=== PATIENT | male | born 1950 | race Caucasian/White ===

== ENCOUNTER → 2023-12-26 14:39 | Outpatient (CLI) | payer MEDICARE, OTHER, SELFPAY ==
[2023-12-26 15:59] LABS: High Sensitivity CRP - Cardiac 1.7 mg/L (1.0-3.0)
[2023-12-26 16:11] LABS: Vitamin D 25 Hydroxy (D3) 41.7 ng/mL (30.0-100.0)
== END ==
PROVIDERS: PCP Family Medicine; Referring Provider Family Medicine; Visit Provider Family Medicine
DX: E55.9 Vitamin D deficiency, unspecified (principal); R79.82 Elevated C-reactive protein (CRP)
CPT/HCPCS: 36415; 82306; 86140

== ENCOUNTER → 2024-05-23 09:51 | Outpatient (CLI) | payer MEDICARE, OTHER, SELFPAY ==
[2024-05-23 10:55] LABS: Alanine Aminotransferase 29 IU/L (<50); Albumin 4.1 g/dL (3.5-5.0); Albumin Globulin Ratio 1.4 (1.0-2.8); Alkaline Phosphatase 76 U/L (38-126); Aspartate Aminotransferase 27 IU/L (17-59); Bilirubin Total 0.7 mg/dL (0.2-1.3); Blood Urea Nitrogen 16 mg/dL (9-20); Calcium 9.4 mg/dL (8.4-10.2); Carbon Dioxide 28 mmol/L (22-32); Chloride 104 mmol/L (98-107); Cholesterol 236 mg/dL (140-199); Estimated Glomerular Filt Rate > 60 mL/min (>60); Globulin 2.9 g/dL (1.7-4.1); Glucose 117 mg/dL (80-110); HDL Cholesterol 91 mg/dL (40-60); HEMOLYSIS < 15 (0-50); LDL Cholesterol Calculated 122 mg/dL (<100); Potassium 4.9 mmol/L (3.4-5.1); Sodium 137 mmol/L (137-145); Triglycerides 114 mg/dL (35-150)
[2024-05-23 10:58] LABS: High Sensitivity CRP - Cardiac 6.6 mg/L (1.0-3.0)
[2024-05-23 11:12] LABS: Vitamin D 25 Hydroxy (D3) 32.5 ng/mL (30.0-100.0)
[2024-05-23 11:26] LABS: Prostate Specific Antigen Scrn 1.52 ng/mL (0.1-4.0)
== END ==
PROVIDERS: PCP Family Medicine; Referring Provider Family Medicine; Visit Provider Family Medicine
DX: R73.03 Prediabetes (principal); E78.5 Hyperlipidemia, unspecified; Z12.5 Encounter for screening for malignant neoplasm of prostate; E55.9 Vitamin D deficiency, unspecified; M10.9 Gout, unspecified
CPT/HCPCS: 36415; 80053; 80061; 82306; 83036; 84550; 86140; G0103

== ENCOUNTER → 2024-06-16 08:58 | Outpatient (CLI) | payer MEDICARE, OTHER, SELFPAY ==
--- NOTE | 2024-06-16 08:59 | DI.MRI.S_ITS ---
PROCEDURE: MR KNEE LT WO CON INDICATIONS: left knee pain/swelling TECHNIQUE: Noncontrast sagittal PD fast spin echo and T2 fast spin echo with fat saturation, sagittal 3-D FLASH with fat saturation; coronal T1 spin echo and PD fast spin echo with fat saturation, and axial PD fast spin echo with fat saturation through the knee. COMPARISON: None. FINDINGS: Image quality: Excellent. Menisci: In the medial meniscus, there is a complex tear of the posterior horn, with a peripheral vertical component and a small radial component of the inner margin. There is additional complex tear of the medial meniscus body, with near maceration of the meniscus body and a meniscus flap extending into the inferior gutter. In the lateral meniscus, there is a small oblique tear of the posterior horn (series 6, image 25). There is additional complex tear of the lateral meniscus body with horizontal and an incomplete radial component. No extrusion of the lateral meniscus body. Cruciate ligaments: The anterior and posterior cruciate ligaments appear intact. Medial structures: Grade 1 sprain of the MCL. Lateral structures: The lateral collateral ligament, long and short heads of the biceps femoris tendon appear intact. The popliteus tendon appears normal; the popliteofibular ligament appears intact. The posterosuperior and anteroinferior popliteomeniscal fascicles appear intact. The arcuate and fabellofibular ligaments appear intact, on either side of the lateral inferior geniculate artery. Iliotibial band appears normal. Anterior structures: The quadriceps tendon is intact. Mild tendinosis of the proximal patellar tendon. The patellofemoral ligaments are intact. Bones and cartilage: There is mild chondral irregularity in the median ridge of the patella. Mild chondral irregularity of the central trochlea, with mild subchondral marrow edema. In the medial compartment, the cartilage is well maintained. In the lateral compartment, the cartilage is well maintained as well. Mild subchondral marrow edema of the peripheral aspect of the medial tibial plateau, reactive. There is a fat containing lesion without marrow edema in the medial aspect distal femur diaphysis, measuring 3.4 cm, favoring benign etiology. Joint space: Small knee effusion. Large, partially ruptured popliteal cyst. Popliteal vasculature is unremarkable. Subcutaneous edema of the knee, most pronounced in the anterior knee. IMPRESSION: 1. Complex tear of the medial and lateral meniscus, medial greater than lateral. Subjacent reactive marrow edema in the peripheral aspect of the medial tibial plateau. 2. Grade 1 sprain of the MCL. 3. Mild chondrosis of the patellofemoral compartment. 4. Large , partially ruptured popliteal cyst. 5. Subcutaneous edema knee, pronounced in the anterior knee. Dictated by: Loren White M.D. on 06/18/2024 at 11:47 Approved by: Loren White M.D. on 06/18/2024 at 12:01
--- NOTE | 2024-06-16 09:00 | DI.MRI.S_ITS ---
PROCEDURE: MR FOOT RT WO CON INDICATIONS: R HALLUX CONTUSION/EXTENSION INJURY TECHNIQUE: Multiphasic, multisequence MRI of the forefoot was performed, without intravenous contrast administration. COMPARISON: None. FINDINGS: Image quality: Excellent. Bones and joints: There is mild patchy marrow edema of the 1st metatarsal neck, extending to the distal diaphysis proximally, without fracture line, favored representing marrow contusion. The hallucal sesamoid are remarkable. No acute fracture. Soft tissues: Both the medial and lateral sesamoid phalangeal ligaments are not visualized, concerning for full-thickness tear. Trace tenosynovitis of the flexor hallucis longus at the level of the 1st metatarsal diaphysis. The extensor tendons are remarkable. Mild subcutaneous edema of the dorsal forefoot. Mild diffuse muscle edema, with mild fatty infiltration, nonspecific. The Lisfranc ligament is intact. No intermetatarsal bursitis. IMPRESSION: 1. Mild marrow contusion of the distal aspect of the 1st metatarsal, with full-thickness tear of both the medial and lateral sesamoid phalangeal ligaments. Dictated by: Loren White M.D. on 06/18/2024 at 12:01 Approved by: Loren White M.D. on 06/18/2024 at 12:12
== END ==
LOC: MRI 08:59
PROVIDERS: PCP Family Medicine; Referring Provider Family Medicine; Visit Provider Family Medicine
DX: S93.501A Unspecified sprain of right great toe, initial encounter (principal); S90.111A Contusion of right great toe without damage to nail, initial encounter; M25.562 Pain in left knee; S83.232A Complex tear of medial meniscus, current injury, left knee, initial encounter; S83.272A Complex tear of lateral meniscus, current injury, left knee, initial encounter; S83.412A Sprain of medial collateral ligament of left knee, initial encounter; M25.462 Effusion, left knee; M66.0 Rupture of popliteal cyst; M22.42 Chondromalacia patellae, left knee; X58.XXXA Exposure to other specified factors, initial encounter
CPT/HCPCS: 73718; 73721

== ENCOUNTER → 2024-07-31 11:58 | Outpatient (CLI) | payer MEDICARE, OTHER, SELFPAY ==
[2024-07-31 12:57] LABS: Alanine Aminotransferase 20 IU/L (<50); Albumin 4.2 g/dL (3.5-5.0); Albumin Globulin Ratio 1.4 (1.0-2.8); Alkaline Phosphatase 76 U/L (38-126); Aspartate Aminotransferase 28 IU/L (17-59); BUN Creatinine Ratio 12.8 (6-22); Bilirubin Total 1.2 mg/dL (0.2-1.3); Blood Urea Nitrogen 14 mg/dL (9-20); C-Reactive Protein Quant < 0.5 mg/dL (<1.0); Calcium 9.3 mg/dL (8.4-10.2); Carbon Dioxide 23 mmol/L (22-32); Chloride 104 mmol/L (98-107); Cholesterol 251 mg/dL (140-199); Estimated Glomerular Filt Rate > 60 mL/min (>60); Globulin 2.9 g/dL (1.7-4.1); Glucose 108 mg/dL (80-110); HDL Cholesterol 68 mg/dL (40-60); HEMOLYSIS < 15 (0-50); LDL Cholesterol Calculated 155 mg/dL (<100); Potassium 4.7 mmol/L (3.4-5.1); Sodium 135 mmol/L (137-145); Total Protein 7.1 g/dL (6.3-8.2); Triglycerides 140 mg/dL (35-150)
[2024-07-31 13:22] LABS: Prostate Specific Antigen 1.71 ng/mL (0.10-4.00)
[2024-07-31 13:50] LABS: Hemoglobin A1C% w Est Avg Glu 5.8 % (4.0-6.0)
== END ==
PROVIDERS: PCP Family Medicine; Referring Provider Family Medicine; Visit Provider Family Medicine
DX: R73.03 Prediabetes (principal); E78.00 Pure hypercholesterolemia, unspecified; Z12.5 Encounter for screening for malignant neoplasm of prostate; G62.9 Polyneuropathy, unspecified; R79.82 Elevated C-reactive protein (CRP); E51.9 Thiamine deficiency, unspecified
CPT/HCPCS: 36415; 80053; 80061; 83036; 84153; 84425; 86140

== ENCOUNTER → 2024-08-15 15:05 | Outpatient (CLI) | payer MEDICARE, OTHER, SELFPAY ==
[2024-08-17 11:36] LABS: Fecal Immunochemical Test Negative (Negative)
== END ==
PROVIDERS: PCP Family Medicine; Referring Provider Family Medicine; Visit Provider Family Medicine
DX: Z12.11 Encounter for screening for malignant neoplasm of colon (principal)
CPT/HCPCS: 82274

== ENCOUNTER → 2025-02-08 09:35 | Outpatient (CLI) | payer MEDICARE, OTHER, SELFPAY ==
[2025-02-08 10:09] LABS: Hematocrit 45.4 % (41-53); Hemoglobin 15.2 g/dL (13.5-17.5); Mean Corpuscular HGB Conc 33.5 % (30-36); Mean Corpuscular Hemoglobin 32.5 PG (26-34); Platelet Count 225 X10^3/uL (150-400); Red Blood Cell Count 4.68 X10^6/uL (4.5-5.9); Red Cell Distribution Width 15.4 % (11.6-14.8); White Blood Cell Count 4.2 X10^3/uL (4.5-11.0)
[2025-02-08 10:16] LABS: Appearance Urine UA CLEAR; Bilirubin Urine UA NEGATIVE (NEGATIVE); Color Urine UA YELLOW; Glucose Urine UA NEGATIVE (Negative); Ketones Urine UA TRACE (NEGATIVE); Leukocyte Esterase Urine UA NEGATIVE (NEGATIVE); Nitrite Urine UA NEGATIVE (Negative); Occult Blood Urine UA TRACE-INTACT (Negative); Protein Urine UA NEGATIVE (Negative); pH Urine UA 6.5 (4.5-8.0)
[2025-02-08 10:17] LABS: Hemoglobin A1C% w Est Avg Glu 5.4 % (4.0-6.0)
[2025-02-08 10:23] LABS: Amorphous Sediment Urine 1+; Bacteria Urine None Seen; Culture Indicated Urine Cult Not Indicated; RBC Urine 1-5/HPF (0-5/HPF); Squamous Epithelial Cell Urine None Seen (0-5/HPF); Urine Volume 10mL (spun); WBC Urine None Seen (0-5/HPF)
[2025-02-08 10:28] LABS: Alanine Aminotransferase 23 IU/L (<50); Albumin 4.4 g/dL (3.5-5.0); Albumin Globulin Ratio 1.6 (1.0-2.8); Alkaline Phosphatase 77 U/L (38-126); Aspartate Aminotransferase 31 IU/L (17-59); BUN Creatinine Ratio 17.5 (6-22); Bilirubin Total 1.1 mg/dL (0.2-1.3); Blood Urea Nitrogen 21 mg/dL (9-20); Calcium 9.1 mg/dL (8.4-10.2); Carbon Dioxide 26 mmol/L (22-32); Chloride 105 mmol/L (98-107); Cholesterol 253 mg/dL (140-199); Estimated Glomerular Filt Rate > 60 mL/min (>60); Globulin 2.8 g/dL (1.7-4.1); Glucose 108 mg/dL (80-110); HDL Cholesterol 74 mg/dL (40-60); HEMOLYSIS < 15 (0-50); LDL Cholesterol Calculated 157 mg/dL (<100); Potassium 5.2 mmol/L (3.4-5.1); Sodium 138 mmol/L (137-145); Total Protein 7.2 g/dL (6.3-8.2); Triglycerides 111 mg/dL (35-150)
[2025-02-08 10:58] LABS: Prostate Specific Antigen Scrn 1.45 ng/mL (0.1-4.0)
[2025-02-10 08:07] LABS: CRP, High Sensitivity 1.95 mg/L (0.00-3.00)
== END ==
PROVIDERS: PCP Family Medicine; Referring Provider Family Medicine; Visit Provider Family Medicine
DX: R73.03 Prediabetes (principal); E78.00 Pure hypercholesterolemia, unspecified; Z12.5 Encounter for screening for malignant neoplasm of prostate; G62.9 Polyneuropathy, unspecified; E53.9 Vitamin B deficiency, unspecified; E55.9 Vitamin D deficiency, unspecified; R79.82 Elevated C-reactive protein (CRP); N40.1 Benign prostatic hyperplasia with lower urinary tract symptoms; N13.8 Other obstructive and reflux uropathy
CPT/HCPCS: 36415; 80053; 80061; 81001; 83036; 83735; 84425; 85027; 86140; G0103

== ENCOUNTER → 2025-02-21 15:48 | Outpatient (CLI) | payer MEDICARE, OTHER, SELFPAY | PROVIDERS: PCP Family Medicine; Referring Provider Family Medicine; Visit Provider Family Medicine | DX: E55.9 Vitamin D deficiency, unspecified; R73.03 Prediabetes; E78.00 Pure hypercholesterolemia, unspecified; R79.82 Elevated C-reactive protein (CRP); N40.0 Benign prostatic hyperplasia without lower urinary tract symptoms | CPT/HCPCS: 36415; 82306 ==

== ENCOUNTER → 2025-09-04 13:09 | Outpatient (CLI) | payer MEDICARE, OTHER, SELFPAY ==
--- NOTE | 2025-09-04 13:11 | DI.RAD.S_ITS ---
PROCEDURE: XR CHEST 2V
[2025-09-04 14:15] LABS: Add Manual Diff / Slide Review NO; Appearance Urine UA CLEAR; Bilirubin Urine UA NEGATIVE (NEGATIVE); Color Urine UA YELLOW; Glucose Urine UA NEGATIVE (Negative); Hematocrit 45.8 % (41-53); Hemoglobin 15.6 g/dL (13.5-17.5); Ketones Urine UA 1+ (NEGATIVE); Leukocyte Esterase Urine UA NEGATIVE (NEGATIVE); Lymphocytes Absolute Auto 1900 /uL (1100-4500); Mean Corpuscular HGB Conc 34.0 % (30-36); Mean Corpuscular Hemoglobin 32.5 PG (26-34); Mean Corpuscular Volume 95.4 fL (80-100); Nitrite Urine UA NEGATIVE (Negative); Occult Blood Urine UA 2+ (Negative); Platelet Count 221 X10^3/uL (150-400); Protein Urine UA NEGATIVE (Negative); Specific Gravity Urine UA >=1.030 (1.000-1.035); Urobilinogen Urine UA 1.0 E.U./dL (0.2); pH Urine UA 5.5 (4.5-8.0)
[2025-09-04 14:19] LABS: Culture Indicated Urine Cult Not Indicated
[2025-09-04 14:23] LABS: Hemoglobin A1C% w Est Avg Glu 5.8 % (4.0-6.0)
[2025-09-04 14:33] LABS: Alanine Aminotransferase 22 IU/L (<50); Albumin 4.5 g/dL (3.5-5.0); Albumin Globulin Ratio 1.5 (1.0-2.8); Alkaline Phosphatase 76 U/L (38-126); Blood Urea Nitrogen 12 mg/dL (9-20); Calcium 8.9 mg/dL (8.4-10.2); Carbon Dioxide 22 mmol/L (22-32); Chloride 107 mmol/L (98-107); Cholesterol 239 mg/dL (140-199); Estimated Glomerular Filt Rate > 60 mL/min (>60); Globulin 3.1 g/dL (1.7-4.1); Glucose 98 mg/dL (70-99); HDL Cholesterol 74 mg/dL (40-60); HEMOLYSIS < 15 (0-50); Potassium 4.9 mmol/L (3.4-5.1); Sodium 138 mmol/L (137-145); Total Protein 7.6 g/dL (6.3-8.2); Triglycerides 116 mg/dL (35-150)
[2025-09-04 15:55] LABS: Vitamin D 25 Hydroxy (D3) 25.4 ng/mL (30.0-100.0)
[2025-09-05 04:36] LABS: CRP, High Sensitivity 8.58 mg/L (0.00-3.00)
== END ==
PROVIDERS: PCP Family Medicine; Referring Provider Family Medicine; Visit Provider Family Medicine
DX: R05.8 Other specified cough (principal); R73.03 Prediabetes; E78.00 Pure hypercholesterolemia, unspecified; E55.9 Vitamin D deficiency, unspecified; R79.82 Elevated C-reactive protein (CRP); N40.0 Benign prostatic hyperplasia without lower urinary tract symptoms; D72.810 Lymphocytopenia; E87.5 Hyperkalemia
CPT/HCPCS: 36415; 71046; 80053; 80061; 81001; 82306; 83036; 83525; 85025; 86140

== ENCOUNTER → 2025-09-26 13:28 | Outpatient (CLI) | payer MEDICARE, OTHER, SELFPAY ==
--- NOTE | 2025-09-26 13:32 | DI.CT.S_ITS ---
PROCEDURE: CT CHEST W CON INDICATIONS: abormal chest x-ray TECHNIQUE: After the administration of intravenous contrast, 5 mm thick sections acquired from the pulmonary apices to the posterior costophrenic angles. 1 mm axial lung, 5 mm thick coronal and sagittal reformats and 7 mm axial MIP were acquired. For radiation dose reduction, the following was used: automated exposure control, adjustment of mA and/or kV according to patient size. COMPARISON: [facility], CR, XR CHEST 2V, 09/04/2025, 13:17. FINDINGS: Image quality: Diagnostic. Lower Neck: No enlarged lymph nodes. Thyroid: No thyroid nodules which require sonographic follow up, per consensus guidelines. Axillae: No enlarged lymph nodes. Chest Wall: Unremarkable. Bones: No aggressive appearing bony lesions. Lungs and Pleura: Elevation of left hemidiaphragm with adjacent left basilar compressive atelectasis. No focal infiltrate, pleural effusion or pneumothorax. No suspicious pulmonary nodules 2 mm calcified nodule is seen in right anterior right upper lobe series 3, image 112. 5 mm calcified granuloma is seen in medial aspect of right lower lobe series 3, image 244. Central and peripheral airway is patent. Heart: Heart size is normal. No pericardial effusion. [id number] LAD atherosclerotic calcifications. Thoracic Vessels: The aorta and pulmonary arteries demonstrate normal size. Mediastinum and Chari: No enlarged lymph nodes. Esophagus: No wall thickening. Large hiatal hernia. Upper Abdomen: Visualized upper abdomen solid organs and bowel loops appear normal. IMPRESSION: 1. Elevation of left hemidiaphragm with large hiatal hernia. Adjacent left basilar compressive atelectasis. No focal infiltrate, pleural effusion or pneumothorax. 2. Calcified granuloma in right upper and lower lobes as above. No suspicious pulmonary nodules are seen. 3. No mediastinal or hilar lymphadenopathy. Lad [id number] atherosclerotic calcifications. No pericardial effusion. Dictated by: Maxim Mccollum M.D. on 09/26/2025 at 15:16 Approved by: Maxim Mccollum M.D. on 09/26/2025 at 15:22
[2025-09-26 15:18] LABS: Vitamin B12 Reflex MMA if <400 322 pg/mL (239-931)
== END ==
LOC: CT 13:30
PROVIDERS: PCP Family Medicine; Referring Provider Family Medicine; Visit Provider Family Medicine
DX: J98.11 Atelectasis (principal); J98.4 Other disorders of lung; K44.9 Diaphragmatic hernia without obstruction or gangrene; R93.89 Abnormal findings on diagnostic imaging of other specified body structures; G62.9 Polyneuropathy, unspecified; R73.03 Prediabetes; I25.10 Atherosclerotic heart disease of native coronary artery without angina pectoris
CPT/HCPCS: 36415; 71260; 82607; 83921; Q9967